=== PATIENT | male | born 1990 | race Caucasian/White ===

== ENCOUNTER 2018-08-01 03:33 | Emergency (ER) | payer OTHER ==
[~2018-08-01] VITALS: Ht 167.6 cm; Wt 66.7 kg
[2018-08-01 04:44] LABS: BASOPHILS % (AUTO) 0.3 % (0.0-2.0); EOSINOPHILS % (AUTO) 2.5 % (1.0-6.0); HEMATOCRIT 40.1 % (41-53); HEMOGLOBIN 13.6 g/dL (13.5-17.5); LYMPHOCYTES % (AUTO) 32.6 % (22.0-44.0); MEAN CORPUSCULAR HEMOGLOBIN 31.3 pg (26.0-34.0); MEAN CORPUSCULAR VOLUME 92 fL (80-100); MONOCYTES # (AUTO) 0.7 K/uL (0.1-1.0); MONOCYTES % (AUTO) 7.2 % (2.0-9.0); NEUTROPHILS # (AUTO) 5.3 K/uL (1.8-7.7); NEUTROPHILS % (AUTO) 57.4 % (40.0-70.0); PLATELET COUNT (AUTO) 275 K/uL (150-450); RED BLOOD CELL COUNT(AUTO) 4.35 MIL/uL (4.50-5.90); RED CELL DISTRIBUTION WIDTH 13.6 % (11.5-14.5)
[2018-08-01 04:50] LABS: ANION GAP 13 mmol/L (8-16); CARBON DIOXIDE 24 mmol/L (22-29); CHLORIDE 104 mmol/L (98-107); CREATININE 0.99 mg/dL (0.60-1.30); GLOMERULAR FILTR. RATE CALC > 60 mL/min (>60); GLUCOSE,RANDOM 102 mg/dL (70-110); POTASSIUM 3.2 mmol/L (3.5-5.1); SODIUM SERUM 141 mmol/L (136-145); UREA NITROGEN, BLOOD 19 mg/dL (7-18)
[2018-08-01 04:55] LABS: ALANINE AMINOTRANSFERASE 48 U/L (12-78); ALBUMIN 3.8 g/dL (3.4-5.0); ALKALINE PHOSPHATASE 89 U/L (46-116); ASPARTATE AMINOTRANSFERASE 64 U/L (15-37)
[2018-08-01 04:57] LABS: SALICYLATE 1.8 mg/dL (2.8-20.0)
[2018-08-01 04:58] LABS: ACETAMINOPHEN < 2 mcg/mL (10-30)
[2018-08-01 09:05] VITALS: BP 117/60
== END 2018-08-01 09:20 | disposition home or self-care (01) ==
LOC: EMS 03:35
DX: F32.9 Major depressive disorder, single episode, unspecified (principal); Z59.0 Homelessness
CPT/HCPCS: 36415; 70450; 80053; 85025; 93005; 99284; G0480; G0481

== ENCOUNTER 2022-06-03 15:19 | Emergency (ER) | payer OTHER ==
[~2022-06-03] VITALS: Ht 167.6 cm; Wt 75.0 kg
[2022-06-03] MEDS ORDERED: NEOMYCIN/BACITRACIN/POLYMYXIN B OINTMENT PACKET TP ONE (20:15)
[2022-06-03] MEDS ORDERED: PENI500T2 PO (20:50)
[2022-06-03] MEDS ORDERED: IBUP-1492 PO (20:51)
[2022-06-03 21:21] VITALS: BP 127/74
== END 2022-06-03 22:01 | disposition home or self-care (01) ==
LOC: EMS 15:31
DX: K08.89 Other specified disorders of teeth and supporting structures (principal); M79.89 Other specified soft tissue disorders; Z59.00 Homelessness unspecified
CPT/HCPCS: 93971; 99284; Z7502; Z7610

== ENCOUNTER 2022-12-01 12:45 | Emergency (ER) | payer OTHER ==
[~2022-12-01] VITALS: Ht 167.6 cm; Wt 80.0 kg
[~2022-12-01 12:45] MED LIST: IBUP-1492 PO; PENI500T2 PO
[2022-12-01 12:57] VITALS: TEMP 98.4
[2022-12-01] MEDS ORDERED: OxyCODONE HCL/ACETAMINOPHEN 5-325 MG TABLET PO ONE (14:00)
[2022-12-01] MEDS ORDERED: CEPHALEXIN MONOHYDRATE 500 MG CAPSULE PO ONE (14:00)
[2022-12-01] MEDS ORDERED: KETOROLAC TROMETHAMINE 60 MG/2 ML VIAL IM ONE (14:00)
[2022-12-01] MEDS ORDERED: BUPR1FIL7 SL (14:21)
[2022-12-01] MEDS ORDERED: PENI500T2 PO (14:21)
[2022-12-01] MEDS ORDERED: IBUP-1554 PO (14:21)
[2022-12-01] MEDS ORDERED: PERCT PO (14:21)
[2022-12-01 14:31] VITALS: BP 132/81; PULSE 80; RESP 16
[2022-12-01] MEDS ORDERED: HYDR-4072 PO (14:46)
[2022-12-01] MEDS ORDERED: BUPR1FIL3 SL (14:48)
== END 2022-12-01 15:54 | disposition home or self-care (01) ==
LOC: EMS 12:54
DX: K08.89 Other specified disorders of teeth and supporting structures (principal); F15.90 Other stimulant use, unspecified, uncomplicated; Z59.00 Homelessness unspecified
CPT/HCPCS: 99283; 96372; J1885

== ENCOUNTER 2022-12-09 19:37 | Emergency (ER) | payer OTHER ==
[~2022-12-09] VITALS: Ht 167.6 cm; Wt 79.5 kg
[~2022-12-09 19:37] MED LIST changes: +BUPR1FIL3 SL; +BUPR1FIL7 SL; +HYDR-4072 PO; +IBUP-1554 PO
[2022-12-09] MEDS ORDERED: 0.9% SODIUM CHLORIDE 10 ML SYRINGE IVP PRN (22:30)
[2022-12-09 23:00] LABS: ANION GAP 6 mmol/L (8-16); BASOPHILS % (AUTO) 0.3 % (0.0-2.0); CALCIUM, TOTAL 9.1 mg/dL (8.8-10.5); CARBON DIOXIDE 28 mmol/L (22-29); CHLORIDE 101 mmol/L (98-107); GLOMERULAR FILTR. RATE CALC > 60 mL/min (>60); GLUCOSE,RANDOM 114 mg/dL (70-110); HEMATOCRIT 37.7 % (41-53); HEMOGLOBIN 12.2 g/dL (13.5-17.5); LYMPHOCYTES # (AUTO) 1.6 K/uL (1.0-4.8); LYMPHOCYTES % (AUTO) 30.3 % (22.0-44.0); MEAN CORPUSCULAR HEMOGLOBIN 28.5 pg (26.0-34.0); MEAN CORPUSCULAR HGB CONC 32.4 G/dL (31.0-37.0); MEAN CORPUSCULAR VOLUME 88 fL (80-100); MONOCYTES # (AUTO) 0.6 K/uL (0.1-1.0); MONOCYTES % (AUTO) 10.5 % (2.0-9.0); NEUTROPHILS # (AUTO) 3.1 K/uL (1.8-7.7); NEUTROPHILS % (AUTO) 56.9 % (40.0-70.0); PLATELET COUNT (AUTO) 319 K/uL (150-450); POTASSIUM 3.7 mmol/L (3.5-5.1); RED BLOOD CELL COUNT(AUTO) 4.29 MIL/uL (4.50-5.90); RED CELL DISTRIBUTION WIDTH 14.4 % (11.5-14.5); SODIUM SERUM 134 mmol/L (136-145)
[2022-12-09 23:06] LABS: ALANINE AMINOTRANSFERASE 31 U/L (12-78); ALBUMIN 3.9 g/dL (3.4-5.0); ALKALINE PHOSPHATASE 109 U/L (46-116); ASPARTATE AMINOTRANSFERASE 36 U/L (15-37); BILIRUBIN,TOTAL 0.4 mg/dL (0.1-1.0); TOTAL PROTEIN, SERUM 7.7 g/dL (6.4-8.2)
[2022-12-09 23:09] LABS: LACTIC ACID 0.6 mmol/L (0.4-2.0)
[2022-12-09 23:20] LABS: D-DIMER 0.73 mg/L FEU (0.00-0.50); PROTHROMBIN TIME 10.3 SEC (9.4-11.6)
[2022-12-09 23:33] VITALS: TEMP 98.7
[2022-12-10] MEDS ORDERED: CEPH-558 PO (00:22)
[2022-12-10] MEDS ORDERED: CEPHALEXIN MONOHYDRATE 500 MG CAPSULE PO ONE (00:30)
[2022-12-10 00:49] VITALS: BP 127/81; PULSE 77; RESP 18
== END 2022-12-10 00:52 | disposition home or self-care (01) ==
LOC: EMS 19:37
DX: L03.115 Cellulitis of right lower limb (principal); R60.0 Localized edema; F15.90 Other stimulant use, unspecified, uncomplicated; Z98.890 Other specified postprocedural states
CPT/HCPCS: 80053; 83605; 85025; 85379; 85610; 85730; 87040; 93971; 99284

== ENCOUNTER 2024-12-16 14:32 | Emergency (ER) | payer OTHER ==
[~2024-12-16] VITALS: Ht 167.6 cm; Wt 75.0 kg
[~2024-12-16 14:32] MED LIST changes: -BUPR1FIL7 SL; +CEPH-558 PO; -HYDR-4072 PO; -IBUP-1492 PO; -IBUP-1554 PO; -PENI500T2 PO
[2024-12-16 14:48] VITALS: BP 136/83; PULSE 76; RESP 18; TEMP 98; O2SAT 97
[2024-12-16] MEDS: IBUPROFEN 600 MG TABLET PO ONE (16:23)
[2024-12-16] MEDS: KETOROLAC TROMETHAMINE 30 MG/ML VIAL IVP ONE (16:37)
== END 2024-12-16 16:45 ==
LOC: EMS 14:32
DX: S43.102A Unspecified dislocation of left acromioclavicular joint, initial encounter (principal); F15.90 Other stimulant use, unspecified, uncomplicated; Z79.899 Other long term (current) drug therapy; Z59.00 Homelessness unspecified; Z98.890 Other specified postprocedural states; X50.1XXA Overexertion from prolonged static or awkward postures, initial encounter; X50.9XXA Other and unspecified overexertion or strenuous movements or postures, initial encounter; Y93.89 Activity, other specified; Y92.89 Other specified places as the place of occurrence of the external cause; Y99.8 Other external cause status
CPT/HCPCS: 99283; 96374; 73030; J1885